=== PATIENT | female | born 1970 | race Two or more races ===

== ENCOUNTER 2018-12-11 13:38 | Emergency (ER) | payer MEDICAID ==
[~2018-12-11] VITALS: Ht 157.5 cm; Wt 72.6 kg
[2018-12-11 13:22] VITALS: BP 138/90
--- NOTE | 2018-12-11 13:22 | NUR ---
ED Nurse Note: PT BROUGHT IN BY [facility] DUE TO VAGINAL PAIN AND LOWER ABD PAIN X 5 DAYS. DENIES BLEEDING BUT STATES SHE HAS A LARGE AMOUNT OF BROWN DISCHARGE WITH A FOUL SMELL. AAO X4 AND FOLLOWS COMMANDS.
[2018-12-11] MEDS ORDERED: HYDROcodone/Acetamin 5/325 tab ORAL ONE (15:00)
--- NOTE | 2018-12-11 15:08 | NUR ---
ED Nurse Note: BLANKETS PROVIDED TO PT. PAIN MED GIVEN.
--- NOTE | 2018-12-11 15:32 | Emergency Room Report ---
History of Present Illness General Chief Complaint: Female Urogenital Problems Source: Patient, EMS Present Illness HPI 48-year-old female presents to the emergency department complaining of progressive 10 out of 10 severity pain localized to the left lower labia in the vaginal area progressive x5 days. Patient reports she is currently experiencing a cyst. Patient reports previous episode of similar symptoms several years ago which required incision and drainage. Patient denies fevers or chills she denies external vaginal lesions. Patient does report history of syphilis she denies swollen tender lymph nodes, joint pain or rashes. States she has not attempted to take any OTC medications or interventions at home. patient reports pain is exacerbated upon attempts to ambulate or palpation. Patient denies having any relieving factors. Allergies: Coded Allergies: No Known Allergies (Unverified , 12/11/18) Patient History Past Medical History: see triage record Past Surgical History: none Pertinent Family History: none Last Menstrual Period: 12/01/18 Now: No Reviewed Nursing Documentation: PMH: Agreed; PSxH: Agreed Nursing Documentation-PMH Past Medical History: No History, Except For History Of Psychiatric Problem: Yes - BIPOLAR Review of Systems All Other Systems: negative except mentioned in HPI Physical Exam Vital Signs Date Time Temp Pulse Resp B/P (MAP) Pulse Ox O2 Delivery O2 Flow Rate FiO2 12/11/18 13:12 98.1 88 20 140/98 (112) 100 Room Air Sp02 EP Interpretation: reviewed, normal General Appearance: alert, GCS 15, non-toxic, mild distress Head: normocephalic, atraumatic Eyes: bilateral eye normal inspection, bilateral eye PERRL ENT: hearing grossly normal, normal voice Neck: full range of motion Respiratory: lungs clear, normal breath sounds, speaking full sentences Cardiovascular #1: regular rate, rhythm Genitourinary: adnexa normal, other - Left Bartholin gland cyst/ abscess with erythema, warmth and tenderness, no ulcers, vessicles or sores. Musculoskeletal: back normal, gait/station normal, normal range of motion, non- tender Neurologic: alert, oriented x3, responsive, motor strength/tone normal, sensory intact, speech normal, grossly normal Psychiatric: judgement/insight normal Skin: other - see Medical Decision Making PA Attestation Dr. Covington is my supervising Physician whom patient management has been discussed with. Diagnostic Impression: Primary Impression: Abscess of Bartholin's gland ER Course 48-year-old female presents to the emergency department complaining of progressive 10 out of 10 severity pain localized to the left lower labia in the vaginal area progressive x5 days. Patient reports she is currently experiencing a cyst. Patient reports previous episode of similar symptoms several years ago which required incision and drainage. Patient denies fevers or chills she denies external vaginal lesions. Patient does report history of syphilis she denies swollen tender lymph nodes, joint pain or rashes. States she has not attempted to take any OTC medications or interventions at home. patient reports pain is exacerbated upon attempts to ambulate or palpation. Patient denies having any relieving factors. Ddx considered but are not limited to cellulitis, abscess, cystic acne, necrotizing fasciitis, insect bite. Vital signs: are WNL, pt. is afebrile H&PE are most consistent with Bartholin gland cyst/ abscess with erythema, warmth and tenderness. secondary infection. ORDERS: none required at this time, the diagnosis is clinical ED INTERVENTIONS: -I & D. -NOrco PO -I do not identify an emergent condition at this time. With current presentation , pt. is stable for close outpatient follow up and conservative treatment. D/ w pt. to return promptly to ED with worsening or new symptoms.- Pt. verbalizes' understanding and agreement with proposed treatment plan. DISCHARGE: At this time pt. is stable for d/c to home. Will provide printed patient care instructions, and any necessary prescriptions. Care plan and follow up instructions have been discussed with the patient prior to discharge. Last Vital Signs Date Time Temp Pulse Resp B/P (MAP) Pulse Ox O2 Delivery O2 Flow Rate FiO2 12/11/18 13:22 98.4 79 16 138/90 98 Room Air Disposition: HOME, SELF-CARE Condition: Stable Scripts Ibuprofen* (MOTRIN*) 600 Mg Tablet 600 MG ORAL THREE TIMES A DAY, #30 TAB 0 Refills Prov: Chuyita Garcia 12/11/18 Cephalexin* (KEFLEX*) 500 Mg Capsule 500 MG ORAL EVERY 12 HOURS for 7 Days, #14 CAP 0 Refills Prov: Chuyita Garcia 12/11/18 Trimethoprim/Sulfamethoxazole 160/800* (BACTRIM DS TABLET*) 1 Each Tablet 1 TAB ORAL TWICE A DAY for 7 Days, #14 TAB Prov: Chuyita Garcia 12/11/18 Referrals: Gunnar Oconnell [facility] Patient Instructions: Bartholin Cyst or Abscess, [id number] Additional Instructions: Take medications as directed. Follow up with a OBGYN within 3-5 days, even if your symptoms have resolved. Return sooner to ED if new symptoms occur, or current symptoms become worse. - Please note that this Emergency Department Report was dictated using [employer] concrete batcher technology software, occasionally this can lead to erroneous entry secondary to interpretation by the dictation equipment. Chuyita Garcia Dec 11, 2018 15:32
[2018-12-11] MEDS ORDERED: BACTRIM DS TAB1 EAC1 ORAL (15:33)
[2018-12-11] MEDS ORDERED: CEPHALEXIN500 MG ORAL (15:33)
[2018-12-11] MEDS ORDERED: IBUPROFEN600 MG ORAL (16:01)
[2018-12-11 16:17] VITALS: BP 131/79
--- NOTE | 2018-12-11 16:17 | NUR ---
ER DISCHARGE NOTE: Patient is cleared to be discharged per PA, pt is aox4, on room air, with stable vital signs. pt was given dc and prescription instructions, homelesss DC paper and community resources provided. pt was able to verbalize understanding, pt id band removed. pt is able to ambulate with steady gait. pt took all belongings.
== END 2018-12-11 16:08 | disposition home or self-care (01) ==
LOC: EDBD 13:38 → EMR 13:50
DX: N75.1 Abscess of Bartholin's gland (principal); F31.9 Bipolar disorder, unspecified
CPT/HCPCS: 99283